=== PATIENT | male | born 1980 | race African-American/Black ===

== ENCOUNTER 2022-03-13 10:09 | Emergency (ER) | payer MEDICAID ==
[~2022-03-13] VITALS: Ht 175.3 cm; Wt 107.0 kg
[2022-03-13 10:22] VITALS: BP 154/82
== END 2022-03-13 11:32 | disposition home or self-care (01) ==
LOC: ER 10:09
DX: Z48.02 Encounter for removal of sutures (principal)
CPT/HCPCS: 99281

== ENCOUNTER 2022-03-16 07:20 | Emergency (ER) | payer MEDICAID ==
[~2022-03-16] VITALS: Ht 175.3 cm; Wt 107.0 kg
[2022-03-16 07:37] VITALS: BP 158/97
== END 2022-03-16 09:51 | disposition home or self-care (01) ==
LOC: ER 07:20
DX: Z48.02 Encounter for removal of sutures (principal); Z00.00 Encounter for general adult medical examination without abnormal findings
CPT/HCPCS: 99281